=== PATIENT | male | born 1960 | race Caucasian/White ===

== ENCOUNTER 2025-03-22 19:16 | Emergency (ER) | payer MEDICARE, MEDICAID ==
[~2025-03-22] VITALS: Ht 162.6 cm; Wt 90.1 kg
[2025-03-22 19:22] VITALS: BP 133/78; PULSE 77; RESP 15; O2SAT 98
[2025-03-22] MEDS ORDERED: dexamethasone sod phosphate 10mg/ml inj IM STA (20:34)
--- NOTE | 2025-03-22 20:40 | Physician Documentation ---
History of Present Illness ~ Chief Complaint: Bite-insect Stated Complaint: LT HAND STUNG BY A BEE AND IS SWOLLEN Time Seen by MD: 19:37 Source: patient, RN/MD HPI Patient is seen today with complaints of redness and itching and swelling and pain of the dorsum of his left hand after he states he got stung by a meat bee or a yellow jacket yesterday. Patient states his hand is itchy but also painful in his concerned for an allergic reaction but also possible infection. Patient denies any fevers or chills and he has no other concern or complaint at this time and states symptoms just started yesterday. Medication Reconciliation Allergies: Coded Allergies: codeine (Verified Allergy, Unknown, headache, 03/22/25) Review of Systems Constitutional: Denies: chills, fever, weakness Eyes: Denies: pain, blurred vision ENT: Denies: ear pain, nose pain, throat pain, mouth pain Respiratory: Denies: cough, shortness of breath Cardiovascular: Denies: chest pain, palpitations Gastrointestinal: Denies: abdominal pain, nausea, vomiting Genitourinary: Denies: burning, dysuria Male Genitalia: Denies: penile discharge, testicular pain Neurological: Denies: headache, dizziness Musculoskeletal: Denies: pain, swelling Integumentary: Denies: rash, lesions Allergic/Immunologic: Denies: hives, itching Hematologic/Lymphatic: Denies: no symptoms reported Psychiatric: Denies: depression, anxiety Physical Exam Vital Signs: Temperature: 98.6, Heart Rate: 77, Respiratory Rate: 15, BP: 133/78, Pulse Oximetry: 98, Weight: 90.100 Physical Exam General: Awake and Alert, no acute distress. HEENT: Conjunctiva pink, Sclera clear, Mucus Membranes moist. Neck: Supple without masses and tenderness. Resp: Unlabored. Lungs clear to auscultation bilaterally. Heart: Regular Rate and rhythm, normal S1 and S2 without murmur, rub or gallop. Musculoskeletal: Patient on exam has significant swelling and redness of the dorsum of his left hand with significant tenderness to palpation and warmth. Very concerning for cellulitis of his hand. Extremities: No cyanosis,clubbing or edema. Skin: Warm and Dry. Progress Results/Orders Results/Orders Vital Signs 03/22/25 19:22 Temp 98.6 Pulse 77 Resp 15 B/P (MAP) 133/78 Pulse Ox 98 Medical Decision Making Findings Patient is seen today with complaints of redness and itching and swelling and pain of the dorsum of his left hand after he states he got stung by a meat bee or a yellow jacket yesterday. Patient states his hand is itchy but also painful in his concerned for an allergic reaction but also possible infection. Patient denies any fevers or chills and he has no other concern or complaint at this time and states symptoms just started yesterday. Patient was given dose of Decadron 10 mg IM as well as Bactrim DS by mouth in the ED tonight. Prescription of Medrol Dosepak taper and Bactrim DS one tab twice a day for 10 days sent to patient's pharmacy [facility] [address]. Patient will follow up with primary care in 2-5 days if no better as needed sooner. Or return to ED with any worsening, concerning or changing symptoms. Shared decision-making utilized today. Departure Disposition: HOME / SELF CARE / HOMELESS Impression: Primary Impression: Bee sting Qualified Codes: T63.441A - Toxic effect of venom of bees, accidental (unintentional), initial encounter Additional Impression: Cellulitis Qualified Codes: L03.114 - Cellulitis of left upper limb Condition: Improved Discharge Instructions: Cellulitis, Adult, Insect Bite, Adult, [id number] Additional Instructions: Patient was given dose of Decadron 10 mg IM as well as Bactrim DS by mouth in the ED tonight. Prescription of Medrol Dosepak taper and Bactrim DS one tab twice a day for 10 days sent to patient's pharmacy [facility] [address]. Patient will follow up with primary care in 2-5 days if no better as needed sooner. Or return to ED with any worsening, concerning or changing symptoms. Shared decision-making utilized today. Referrals: NO PRIMARY CARE PROVIDER (PCP) Prescriptions Sulfamethoxazole/Trimethoprim (Bactrim Ds Tablet) 800 Mg-160 Mg Tablet 1 TAB PO Q12H for 10 Days, #20 TAB Prov: JOAO VALLE PAC 03/22/25 Methylprednisolone (Medrol Dosepak) 4 Mg Tab.ds.pk 0 PO UD, #21 TAB 0 Refills take 6 Pills Day 1, 5 Pills Day 2, 4 Pills Day 3, 3 Pills Day 4, 2 Pills Day 5 and 1 pill Day 6 Prov: JOAO VALLE PAC 03/22/25 Signature Scribe Signature: No scribe Attestation: No scribJOAO Banda PAC Mar 22, 2025 20:40
[2025-03-22] MEDS: sulfamethoxazole/trimethoprim DS (800/160mg) tablet PO STA (20:49)
[2025-03-22] MEDS: dexamethasone sod phosphate 10mg/ml inj IM STA (20:51)
[2025-03-22] MEDS ORDERED: SULF1TAB49 PO (20:52)
[2025-03-22] MEDS ORDERED: METH4TAB81 PO (20:52)
[2025-03-22 20:55] VITALS: TEMP 98.6
== END 2025-03-22 20:58 | disposition home or self-care (01) ==
LOC: ER 19:16
DX: T63.441A Toxic effect of venom of bees, accidental (unintentional), initial encounter (principal); L03.114 Cellulitis of left upper limb; Z88.5 Allergy status to narcotic agent; W57.XXXA Bitten or stung by nonvenomous insect and other nonvenomous arthropods, initial encounter; Y93.89 Activity, other specified; Y92.89 Other specified places as the place of occurrence of the external cause; Y99.8 Other external cause status
CPT/HCPCS: 96372; 99283; J1100

== ENCOUNTER 2025-10-05 22:36 | Inpatient (IN) | payer MEDICARE, MEDICAID ==
[~2025-10-05] VITALS: Ht 170.2 cm; Wt 52.1 kg
[~2025-10-05 22:36] MED LIST: METH4TAB81 PO
--- NOTE | 2025-10-05 23:36 | RADIOLOGY REPORT ---
CHEST RADIOGRAPH INDICATION: CCC TECHNIQUE: Frontal and lateral view of the chest was obtained COMPARISON: None FINDINGS: Streaky opacity at the left lung base. Mild chronic fibrotic changes. Cardiac silhouette is within normal limits. Bones and soft tissues demonstrate no significant abnormality. IMPRESSION: Streaky opacity at the left lung base which could represent a developing bronchopneumonia.
[2025-10-06] VITALS (12 sets, daily range): BP systolic 147–165; BP diastolic 71–80; PULSE 61–90; RESP 14–22; TEMP 98.1–98.6; O2SAT 93–98
--- NOTE | 2025-10-06 00:17 | Physician Documentation ---
History of Present Illness ~ Chief Complaint: Cold, cough & congestion Stated Complaint: POSS PNUEMONIA Time Seen by MD: 01:41 HPI This is a 65-year-old male who presents with one-week of progressively worsening productive cough described as coughing up white stuff. Patient reports feeling hot all over when asked about fever. Date: Oct 06, 2025 Time: 02:30 Additional note by Red Ceja, DO: I took over the care of this patient from previous physician. I reviewed any previous notes available, obtain my own history, review of systems and physical examination was performed by myself. This is a 65-year-old homeless gentleman who presents for evaluation of seven days of progressive worsening productive cough with a white and yellow sputum. No obvious trigger provocation. Reports shortness a breath that is both exertional and positional. He reports fever, chills. Denies chest pain. Denies any nausea, vomiting, diarrhea. He reports myalgias. Denies dysuria hematuria. He smokes, he drinks, he uses meth. He does not have a formal diagnosis of congestive heart failure Medication Reconciliation Allergies: Coded Allergies: codeine (Verified Allergy, Unknown, headache, 10/05/25) Scheduled Methylprednisolone (Medrol Dosepak), 0 PO UD Review of Systems ROS As stated above in the HPI, otherwise all systems are reviewed and negative. Physical Exam Vital Signs: Temperature: 98.1, Source: Oral, Heart Rate: 89, Respiratory Rate: 20, BP: 212/99, Pulse Oximetry: 92, Weight: 52.100 Oxygen Flow Rate: 0 Physical Exam GENERAL: Awake, alert, oriented, GCS 15, no apparent distress, non-toxic appearing, answers questions, follows commands appropriately. Examined in triage. Obvious stigmata of homelessness. HEENT: Atraumatic, normocephalic, pupils equal, extraocular muscles intact, sclerae anicteric, mucus membranes moist, oropharynx is clear, no stridor. NECK: supple, full active range of motion, trachea midline, no thyromegaly, no lymphadenopathy, no JVD. CARDIOVASCULAR: regular rate/rhythm, no murmurs/gallops/rubs, Pulses are 2+ in all extremities and symmetric. Capillary refill less than 2 seconds. PULMONARY: Nonlabored, good air movement ,no respiratory distress, speaking in full sentences, clear to auscultation bilaterally, no wheezing, left-sided anterior ronchi, no rales, no accessory muscle use. GASTROINTESTINAL: Soft, non-tender, non-distended, normal active bowel sounds, no organomegaly, no pulsatile masses, no CVA tenderness. NEUROLOGIC: Lucid with normal mental status. Normal facial symmetry. Moves all extremities symmetrically and with purpose. No truncal ataxia. Speech is fluid without evidence of dysarthria or aphasia, no focal deficits appreciated. MUSCULOSKELETAL: There is full range of motion of all extremities. There is no joint pain or joint swelling or joint erythema. There is no muscle pain or tenderness or swelling. EXTREMITIES: warm, well-perfused, no cyanosis, no clubbing, bilateral lower extremity edema, no acute deformities. Skin: warm, dry, no rashes or lesions, no jaundice, no petechiae orpurpura. No ecchymosis. PSYCHIATRIC: Normal affect, normal insight, normal concentration. Focused exam: []: Progress Results/Orders Results/Orders Orders - RED CEJA DO Chest,Two Views (10/05/25 22:51) Culture Blood (10/05/25 22:51) Saline Lock (10/05/25 22:51) Oxygen (10/05/25 22:51) Hs Troponin I W Calculations (10/06/25 03:59) Page Hospitalist (10/06/25 02:29) Fill Out Med Reconciliation (10/06/25 02:29) Completed Orders - RED CEJA DO Chest,Two Views (10/05/25 22:51) Cbc/Diff (10/05/25 22:51) BMP (10/05/25 22:51) PBNP (10/05/25 22:51) Lacticsepsis (10/05/25 22:51) Electrocardiogram (10/06/25 01:59) ESR (10/06/25 01:59) Hs Troponin I W Calculations (10/06/25 01:59) Azithromycin/Ns 500mg/250ml (Zithromax/N (10/06/25 02:00) Ceftriaxone 2gm/Ns 100ml Ivpb (Rocephin (10/06/25 02:00) Furosemide Inj (Lasix Inj) (10/06/25 02:00) C-Reactive Protein (10/06/25 00:31) Vital Signs 10/05/25 22:44 Temp 98.1 Pulse 89 Resp 20 B/P (MAP) 212/99 Pulse Ox 92 O2 Flow Rate 0 Laboratory Tests Test 10/06/25 00:31 White Blood Count 15.8 H Red Blood Count 4.96 Hemoglobin 13.3 L Hematocrit 40.6 L Mean Corpuscular Volume 81.9 Mean Corpuscular Hemoglobin 26.8 L Mean Corpuscular Hemoglobin Concent 32.7 L Red Cell Distribution Width 16.4 H Platelet Count 336 Mean Platelet Volume 8.0 Neutrophils (%) (Auto) 86.8 H Lymphocytes (%) (Auto) 3.2 L Monocytes (%) (Auto) 9.7 Eosinophils (%) (Auto) 0.1 Basophils (%) (Auto) 0.2 Neutrophils # (Auto) 13.8 H Lymphocytes # (Auto) 0.5 L Monocytes # (Auto) 1.5 H Eosinophils # (Auto) 0.0 Basophils # (Auto) 0.0 CBC Comment Erythrocyte Sedimentation Rate 34 H Sodium Level 140 Potassium Level 4.1 Chloride Level 100 Carbon Dioxide Level 27.0 Anion Gap 13 Blood Urea Nitrogen 75 H Creatinine 3.05 H Estimated GFR/1.73 m2 21 BUN/Creatinine Ratio 24.6 H Glucose Level 127 H Lactic Acid Level 1.1 Calcium Level 9.2 Troponin I High Sensitivity 31 C-Reactive Protein 7.49 H Pro-B-Type Natriuretic Peptide 8386 H Albumin 3.6 Chemistry Comments Microbiology Date/Time Source Procedure Growth Status 10/06/25 00:31 Blood Arm Right Blood Culture - Preliminary NEGATIVE (LESS THAN 24 HOURS) Resulted EKG/XRAY/CT/US/VASC/MRI EKG : Additional Comment EKG was obtained and interpreted by myself showing ectopic atrial pacing, normal SC interval, narrow QRS, borderline QTC of 496, normal axis, no STEMI. T-wave inversion in inferior leads as well as V5 and V6. LVH noted. Medical Decision Making Additional information obtaine: old records Findings MSE performed in triage and patient returned to ED lobby by nursing staff to await available ED room Date: Oct 06, 2025 Time: 02:32 Facility Status: ED Holds, RME process The plan was discussed with the patient, who demonstrates clear understanding of the plan and is in agreement with the plan unless otherwise noted in the chart. All questions have been answered, all concerns were addressed unless otherwise documented. I was available throughout their ED stay for frequent reassessment and questions. Differential Diagnoses (considered and possible or likely): [COVID, influenza, RSV, upper respiratory infection with the top of the viruses, bacterial p neumonia, COPD, CHF, ACS, less likely pulmonary embolism] ??Differential Diagnoses (considered and unlikely, not requiring evaluation currently): [See above. Unlikely to represent mitochondrial poisoning] MDM Data Please see [facility] for the following: Independent Historians and external Records Review. Historian: [Patient] Independent Historians: ?[Record review] Medication Management: [Reviewed medication list] Social History and determinants: [Reviewed] Please see the body of the note for the following: Any independent interpretations of ECG, imaging studies. All vitals signs/haemodynamics, ordered tests were independently reviewed and interpreted by myself. Nursing triage complaint and vitals reviewed, additional nursing notes were reviewed as available and I agree unless otherwise noted or documented in contradiction in the chart Vital Signs: Independently reviewed Labs: Independently interpreted Imaging: Independently interpreted Old Medical Records: Independently reviewed, see [facility] for relevant summary and information Pulse Oximetry: [95%] interpreted as [normal on room air] by me [Health Technician: [Regular Rate, Regular rhythm, no ectopy, NSR] reviewed and interpreted by me] Additionally notably showing: [Hemodynamics reviewed. The patient is not febrile, not tachycardic, markedly hypotensive, no evidence of hypoxia or respiratory distress. CBC shows leukocytosis, 87% neutrophilic predominance. Metabolic panel notable for JOLENE versus CKD, no prior data is available. Intravascular depletion noted. BNP is markedly elevated concerning for new diagnosis of CHF. Chest x-ray is consistent with a left lower lobe pneumonia. Troponin is negative] Tests considered but not ordered include: [Echo can be done on an inpatient basis] Social Determinants of Health Impact: Patient was evaluated in [facility] [place] to healthcare due to below par ratio of patient to medical providers. [] Comorbid Conditions Impacting Present Evaluation and Care/Treatment: [Homelessness and polysubstance abuse] Management Discussions with other Healthcare Providers: [Hospitalist regarding admission] Treatment and Disposition Medication Management (Given or considered): [Lasix, antibiotics]. See EMR for details Consideration for Hospitalization/Escalation/Deescalation of Care: Admission for observation is necessary for further management of his community-acquired pneumonia, borderline hypoxia, and investigation of a new diagnosis of congestive heart failure ?ED Course:?[No clinical deterioration] ?Shared decision making:?[] Code status:?FULL Please see the full Electronic Medical Record for full details of nursing documentation, medications list, other records of complete past medical history and conditions, vital signs, laboratory studies, and any radiologic study interpretations by radiologists. Portions of this note were completed using [employer] dictation software and as a result there may exist minor errors in spelling. I have reviewed elements of past family and social history and agree as included in note. Differential Dx:Considerations: Include: Other (See body of the main note for differential diagnosis) Departure Disposition: 09 ADMITTED INPATIENT Admitted to Inpatient Unit: to hospitalist Impression: Primary Impression: Community acquired pneumonia Additional Impressions: New onset of congestive heart failure Methamphetamine abuse Tobacco abuse Homelessness Condition: Stable Referrals: NO PRIMARY CARE PROVIDER (PCP) Signature Scribe Signature: No scribe Attestation: The note accurately reflects work and decisions made by me.Red Ceja DO 10/06/25 02:35 ERIC NIELSON Oct 06, 2025 00:17 RED CEJA DO Oct 06, 2025 02:35
[2025-10-06 00:45] LABS: MEAN PLATELET VOLUME 8.0 FL (7.4-10.4); RED CELL DISTRIBUTION WIDTH 16.4 % (11.5-14.5)
[2025-10-06 01:09] LABS: CREATININE 3.05 MG/DL (0.60-1.10); PRO BRAIN NATRIURETIC PEPTIDE 8386 PG/ML (0-125); TOTAL CARBON DIOXIDE 27.0 MMOL/L (24-32); eCRCL 17 ML/MIN; eGFR 21 ML/MIN
--- NOTE | 2025-10-06 02:12 | ELECTROCARDIOGRAPH REPORT ---
[facility] Test Date: 2025-10-06 Test Time: 02:10:34 Pat Name: DESI IZQUIERDO Department: [facility]-ER Patient ID: [facility]-[id number] Room: [place] [address] Gender: M Order Clerk: : 1960 Requested By: ANGELICA CEJA Order Number: [id number] Reading MD: Dr. Eulalio Mae Measurements Intervals [place] Rate: 86 P: 0 ME: 96 QRS: 85 QRSD: 89 T: -73 QT: 414 QTc: 496 Interpretive Statements Atrial-paced complexes Ventricular premature complex Probable left atrial enlargement Borderline right axis deviation LVH with secondary repolarization abnormality Borderline prolonged QT interval Electronically Signed On 10-10-2025 0:20:[address] Eulalio Mae Please click the below link to view image of tracing.
[2025-10-06] MEDS ORDERED: ondansetron/PF 4mg/2ml inj IV PRN (03:05)
[2025-10-06] MEDS ORDERED: potassium Cl 20 mEq SR tablet PO PRN ×2 (03:05)
[2025-10-06] MEDS ORDERED: magnesium sulf-water 4G/100mL 100 ML IV PRN (03:05)
[2025-10-06] MEDS ORDERED: magnesium sulf-water 2g/50mL 50 ML IV PRN (03:05)
[2025-10-06] MEDS ORDERED: magnesium Cl slow-release 64mg tablet PO PRN (03:05)
[2025-10-06] MEDS ORDERED: potassium Cl 40MEQ/1/2NS 520ml 520 ML IV PRN (03:05)
[2025-10-06] MEDS ORDERED: magnesium hydroxide 30ml (MOM) UD suspension PO PRN (03:05)
[2025-10-06] MEDS ORDERED: albuterol 2.5 MG/3 ML nebule NEB PRN (03:45)
--- NOTE | 2025-10-06 04:41 | HISTORY AND PHYSICAL-Residence ---
History & Physical Providers to CC Resident Creating Document: JUAN J SANTAMARIA, GINA ~ History of Present Illness Reason for Admit\Complaint: Acute hypoxemic respiratory failure, acute CHF, left lower pneumonia, History of Present Illness 65-year-old male(very poor historian) came to the ER with chief complaints of cough and fever. He endorses cough for the past 1 week, progressively worsening, associated with white and yellow-colored sputum without any obvious trigger. He reported fever, high-grade, intermittent not associated with chills and rigors for the past 5 days. He is complaining of the shortness of breath for the past 2 weeks, class 4 NYHA associated with orthopnea and PND. He reported chest pain for the past 1 week more on the left side, squeezing type, rated 10/10 without any aggravating or relieving factors and without any radiation to neck and left upper limb. He is complaining of the wheezing for the past 2-3 weeks. He reports myalgias and generalized weakness. he denied swelling of the legs, palpitations, nausea, vomiting, diarrhea, dysuria, hematuria. He endorses that he is smoking cigarettes and meth and he is drinking alcohol. He does not have any diagnosis of CHF Allergies: Coded Allergies: codeine (Verified Allergy, Unknown, headache, 10/05/25) Home Medications Home Medications Active Medrol Dosepak (Methylprednisolone) 4 Mg Tab.ds.pk 0 PO UD take 6 Pills Day 1, 5 Pills Day 2, 4 Pills Day 3, 3 Pills Day 4, 2 Pills Day 5 and 1 pill Day 6 Past Medical History Past Medical History Unknown Past Surgical History Surgical History Comment Unknown Family History Family History: Patient reports no known family medical history. Past Social History Social History Comment Could not able to elicit complete social history because he is not answering the questions completely and falling asleep. Smoking cigarettes a pack per day for more than 10 years Drinks alcohol but he does not know the accurate quantity Methamphetamine use Smoking: Cigarettes, Greater than 1 pack/day Alcohol Use: Heavy Drug Use: Methamphetamine Lives with: Alone Lives In: Homeless ROS Constitutional: Reports: fever, malaise, weakness Eyes: Reports: no symptoms reported ENT: Reports: no symptoms reported Respiratory: Reports: see HPI, cough, orthopnea, shortness of breath, SOB with exertion, SOB at rest, wheezing Cardiovascular: Reports: chest pain, palpitations Gastrointestinal: Reports: poor appetite, poor fluid intake Genitourinary: Reports: decreased urine output Male Genitalia: Reports: no symptoms reported Neurological: Reports: no symptoms reported Musculoskeletal: Reports: no symptoms reported Integumentary: Reports: lesions Allergic/Immunologic: Reports: no symptoms reported Hematologic/Lymphatic: Reports: no symptoms reported Endocrine: Reports: no symptoms reported Psychiatric: Reports: no symptoms reported Exam Vitals: Vital Signs Date Time Temp Pulse Resp B/P (MAP) Pulse Ox O2 Delivery O2 Flow Rate FiO2 10/06/25 03:57 93 2.0 10/05/25 22:44 98.1 89 20 212/99 General: General:: Awake, alert, not oriented to time, place. In mild respiratory distress.answers questions, not following commands appropriately and feels drowsy. Obtunded and homelessness. Malnourished moderately. HEENT: Atraumatic, normocephalic, pupils equal, extraocular muscles intact, sclerae anicteric, mucus membranes moist, oropharynx is clear, no stridor. Neck: supple, full active range of motion, trachea midline, no thyromegaly, no lymphadenopathy, no JVD. Cardiovascular system: regular rate/rhythm,/gallops/rubs, Pulses are 2+ in all extremities and symmetric. Able to heard ejection systolic murmur but it is too noisy with crepitations and wheeze. Capillary refill less than 2 seconds. Chest and respiratory system: Bilateral normal vesicular breath sounds are heard. Bilateral crepitations in infrascapular and interscapular area. More on the left lower zone. Wheezing over bilateral infrascapular area. Gastrointestinal: Soft, non-tender, non-distended, normal active bowel sounds, no organomegaly, no pulsatile masses, no CVA tenderness. Neurological system: Lucid with normal mental status. Normal facial symmetry. Moves all extremities symmetrically and with purpose. No truncal ataxia. Speech is fluid without evidence of dysarthria or aphasia, no focal deficits appreciated. Musculoskeletal system: There is full range of motion of all extremities. There is no joint pain or joint swelling or joint erythema. There is no muscle pain or tenderness or swelling. Extremities: warm, well-perfused, no cyanosis, clubbing is present. No bilateral lower extremity edema, no acute deformities. Skin: warm, dry, no rashes or lesions, no jaundice, no petechiae orpurpura. Bilateral healed crusted lesions on leg Psychiatric: Affect and mood is normal.. Diagnostic Data Last Recorded Lab Results: 10/06/25 0031 10/06/25 0031 Advance Care Planning Advanced Care plannin - 30 Minutes Additional Plan Acute hypoxemic respiratory failure likely secondary to below 1)Possible acute CHF, new onset 2)Possible acute exacerbation of undetected COPD 3)Left lower zone pneumonia, covering Gram-positive and Gram-negative and anaerobes WBC counts are elevated to 15.8 with a neutrophilic preponderance. Procalcitonin is 0.53 and lactic acid is 1.1 and C-reactive protein is 7.49 and ESR is 34 Electrolytes are okay. Troponins are negative ProBNP is 8 386 Chest x-ray showed left lower zone pneumonia along with COPD changes Outpatient evaluation with PFT Ordered echocardiogram We are diuresing with Lasix 40 mg IV b.i.d. but we will follow up with input and output chart if there is any need we may probably give fluid. Received ceftriaxone Zithromax and we continued the patient on ceftriaxone Zithromax Started on albuterol q.4h p.r.n. , DuoNeb q.4h scheduled, methylprednisolone 125 mg followed by 40 mg IV q.6 H Incentive spirometer with flutter valve q.1h while awake Maintain magnesium more than 2 and potassium more than 4 Ordered A1c, lipid panel Ordered ST BSS and nursing swallow screen meanwhile we put the patient on aspiration precautions. JOLENE likely secondary to prerenal, vasomotor nephropathy Serum creatinine of 3.05 with BUN of 75 with BUN to creatinine ratio of 24.6 Ordered urinary lytes with serum ethanol follow up with the results Consult strategic debriefing officer in the a.m. Polysubstance use Methamphetamine use disorder Alcohol use disorder Nicotine use disorder Ordered U tox and ethanol level and urinalysis follow up with the results. Ordered social and substance use consult , Started on mild detox protocol Code status: Full code Diet: Heart healthy diet after swallow test DVT prophylaxis: SCDs and heparin Prognosis: Guarded Juan J Santamaria IM resident, PGY 2 We saw and discussed the case with the resident team Agree with assessment and plan as documented Date of Service: Oct 06, 2025 Billing Provider: MIKE SAUCEDA MD, VENKATESH, GINA Oct 06, 2025 04:41 MIKE SAUCEDA MD Oct 06, 2025 10:53
[2025-10-06] MEDS ORDERED: dextrose 50%-water 50ml dispensing syringe IV PRN (04:55)
[2025-10-06] MEDS: furosemide 10 MG/1 ML 10ml inj IV ONE (05:23)
[2025-10-06] MEDS: azithromycin/NS 500mg/250ml 250 ML IV ONE (05:23)
[2025-10-06 06:16] LABS: LEUKOCYTE ESTERASE ,URINE NEGATIVE (Neg); NITRITES, URINE NEGATIVE (Neg); OCCULT BLOOD,URINE SMALL (Neg)
[2025-10-06 06:20] LABS: UA COLLECTION TYPE CLN CATCH MIDSTREAM
[2025-10-06 06:22] LABS: MUCUS STRANDS FEW /LPF (Neg); SQUAMOUS EPITHELIAL CELL,UR FEW /LPF (FEW)
[2025-10-06 06:25] LABS: OSMOLALITY UA 564 MOSM/K (50-1400)
[2025-10-06] MEDS: CefTRIAXone 2gm/D5W 50ml BAG 50 ML IV ONE (06:47)
[2025-10-06 06:53] LABS: CREATININE,URINE RANDOM 139.0 MG/DL; TOTAL PROTEIN,URINE RANDOM 109.5 MG/DL; URINE AMPHETAMINE SCREEN POSITIVE (Neg); URINE BARBITUATE SCREEN NEGATIVE (Neg); URINE BENZODIAZEPINES SCREEN NEGATIVE (Neg); URINE CANNABINOID SCREEN NEGATIVE (Neg); URINE COCAINE SCREEN NEGATIVE (Neg); URINE METHADONE SCREEN NEGATIVE (Neg); URINE OPIATE SCREEN NEGATIVE (Neg); URINE PHENCYCLIDINE SCREEN NEGATIVE (Neg)
[2025-10-06] MEDS: ipratropium/albuterol 3ml nebule NEB SCH (07:24)
[2025-10-06] MEDS: K and/or MAG REPLACEMENT MC SCH (08:00)
[2025-10-06] MEDS ORDERED: azithromycin/NS 500mg/250ml 250 ML IV SCH (08:00)
[2025-10-06] MEDS: docusate sod 100mg capsule PO SCH (08:00)
[2025-10-06] MEDS: methylPREDNISolone sod succ/PF 40mg inj. IV SCH (08:52)
[2025-10-06] MEDS: thiamine 100mg/ml 2ml inj. IV SCH (08:52)
[2025-10-06] MEDS: furosemide 10 MG/1 ML 10ml inj IV SCH (08:53)
[2025-10-06] MEDS: heparin, porcine 5000 units/ml vial SQ SCH (08:54)
[2025-10-06] MEDS: folic acid 1mg/0.2ml inj IV SCH (09:07)
[2025-10-06 11:30] LABS: APTT 29 SECONDS (22-32); INR 1.1 INR
[2025-10-06 13:56] LABS: INFLUENZA TYPE A ANTIGEN RAPID NEGATIVE (Negative); INFLUENZA TYPE B ANTIGEN RAPID NEGATIVE (Negative)
[2025-10-06] MEDS: vancomycin/NS 1 GM ADD-VANTAGE 250 ML X 1 DOSE IV ONE (19:28)
--- NOTE | 2025-10-06 19:34 | RADIOLOGY REPORT ---
INDICATION: JOLENE TECHNIQUE: Multiple real-time sonographic images of the kidneys and bladder were obtained. COMPARISON: None FINDINGS: RIGHT kidney measures 8.3 cm in length. No stones or hydronephrosis. LEFT kidney measures 9.3 cm in length. No stones or hydronephrosis. Bladder is decompressed. IMPRESSION: No hydronephrosis.
[2025-10-07] VITALS (32 sets, daily range): BP systolic 112–172; BP diastolic 60–105; PULSE 55–177; RESP 15–31; TEMP 97.2–98.7; O2SAT 91–98
[2025-10-07] MEDS: hydrALAZINE 20mg/ml inj. IV PRN (02:21)
[2025-10-07 06:45] LABS: MEAN PLATELET VOLUME 8.7 FL (7.4-10.4); RED CELL DISTRIBUTION WIDTH 16.3 % (11.5-14.5)
[2025-10-07 06:51] LABS: CREATININE 2.89 MG/DL (0.60-1.10); PHOSPHORUS 4.4 MG/DL (2.3-4.5); TOTAL CARBON DIOXIDE 27.8 MMOL/L (24-32); eCRCL 18 ML/MIN; eGFR 22 ML/MIN
[2025-10-07] MEDS: methylPREDNISolone sod succ/PF 40mg inj. IV SCH (07:59)
[2025-10-07] MEDS: CefTRIAXone/D5W-Rocephin 1gm 50 ML IV SCH (08:01)
--- NOTE | 2025-10-07 08:24 | ELECTROCARDIOGRAPH REPORT ---
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 PRINCE Parker Measurements Intervals [place] Rate: 173 P: 0 OR: 0 QRS: 0 QRSD: 164 T: 66 QT: 313 QTc: 531 Interpretive Statements Atrial fibrillation. With rapid ventricular response. Nonspecific ST-T changes Electronically Signed On 10-07-2025 11:02:[address] PRINCE Parker Please click the below link to view image of tracing.
[2025-10-07] MEDS: metoprolol tartrate 1mg/ml inj IV ONE ×3 (08:33→09:46)
[2025-10-07] MEDS: VANCOMYCIN LEVEL IV ONE (08:50)
[2025-10-07] MEDS: normal saline 500ml IV soln 500 ML IV ONE (08:50)
[2025-10-07] MEDS: azithromycin/NS 500mg/250ml 250 ML IV SCH (09:01)
--- NOTE | 2025-10-07 11:10 | CARDIOLOGY REPORT ---
APPROVED REPORT EXAM: Comprehensive 2D, Doppler, and color-flow Echocardiogram. 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 180.6 cm/s AoV VTI 27.9 cm AO Peak GR. 13.0 mmHg AO Mean GR. 8 mmHg LVOT VTI 22.64 cm LVOT Peak Ashok. 114.7 cm/s JOSEPH(VTI)/BSA 2.74 cm2/m2 JOSEPH (VTI) 2.74 cm2 AV DI 0.81 % Mitral Valve MV E Velocity 57.4 cm/s MV Peak Gr. 2 mmHg MV DECEL TIME 288 ms MV A Velocity 88.0 cm/s MV PHT 68 ms E/A Ratio 0.7 MVA (PHT) 3.24 cm2 MV VMax 66.1 cm/s Tricuspid Valve TR P. Velocity 303 cm/s RAP ESTIMATE 10 mmHg TR Peak Gr. 37 mmHg RVSP 47 mmHg LEFT VENTRICLE Normal LV size with hyperdynamic function. Peak LV gradient of 28 mmHg at rest. Patient unable to perform Valsalva maneuver. Moderate concentric hypertrophy. Overall LVEF is 70-75%. RIGHT VENTRICLE RV is normal size and function. Elevated right heart pressures as noted above. ATRIA The left atrium size is normal. AORTIC VALVE Trileaflet AV appears sclerotic without stenosis. No insufficiency by color and spectral flow Doppler. MITRAL VALVE Mild MV annular calcification without stenosis. Trace regurgitation by color and spectral flow Doppler. TRICUSPID VALVE TV appears structurally normal with trace regurgitation by color and spectral flow Doppler. PULMONIC VALVE Pulmonic valve is not well visualized. GREAT VESSELS The aortic root is normal in size. PERICARDIUM Normal pericardium. No effusion. Other Information Study Quality: Adequate Conclusion Overall LVEF is 70-75%. Normal LV size with hyperdynamic function. Peak LV gradient of 28 mmHg at rest. Patient unable to perform Valsalva maneuver. Moderate concentric hypertrophy. RV is normal size and function. Elevated right heart pressures as noted above. Mild MV annular calcification without stenosis. Trace regurgitation by color and spectral flow Doppler. TV appears structurally normal with trace regurgitation by color and spectral flow Doppler. Estimated PA systolic pressure of 47 mm of mercury Pulmonic valve is not well visualized. Normal pericardium. No effusion.
[2025-10-07] MEDS: amiodarone 150mg/dext, iso-os 100 ML IV ONE (11:40)
[2025-10-07] MEDS: amiodarone/D5 360MG/200ML BAG 200 ML IV SCH (11:54)
[2025-10-07] MEDS: vancomycin/NS 1 GM ADD-VANTAGE 250 ML IV ONE (12:03)
[2025-10-07] MEDS ORDERED: NO HOME MEDS (14:34)
--- NOTE | 2025-10-07 14:58 | CONSULTATION REPORT ---
History of Present Illness Providers to CC CC: WILL GORDON MD ~ Reason for Admit\Admit Dx: Cardiology consultation Refering MD: None History of Present Illness Patient presented with cough. He apparently went into atrial fibrillation today with rapid ventricular response. Treated with IV metoprolol and amiodarone. He is going in and out of atrial fibrillation with rapid ventricular response rate of about 170-200. Was positive for methamphetamine and fentanyl. Currently, he is requesting Suboxone. He is unable to provide much history. Allergies: Coded Allergies: codeine (Verified Allergy, Unknown, headache, 10/05/25) Home Medications Home Medications Active Reported No Home Medications (Home Med List) Each Past Medical History Medical History Comment No known history Past Family History Family History: Patient reports no known family medical history. Physical Exam Last Vital Signs Recorded: RN Vital Signs have been reviewed: Yes, Temperature: 97.2, Source: Oral, Heart Rate: 145, Respiratory Rate: 25, BP: 144/76, Pulse Oximetry: 98, Weight: 52.100 Physical Exam General: Awake, asleep but awakens to light shaking. On room air. Respirations even and unlabored. No apparent distress. Respiratory: Lungs are clear to auscultation bilaterally. No respiratory distress. Chest: Normal shape and size. No accessory muscle use. Cardiovascular: Regular rate and rhythm. S1-S2. No murmur, gallop, rub. Extremities: No lower extremity edema, cyanosis or clubbing. Neurologic: Alert and oriented x4. Nonfocal Psychiatric: Normal mood and affect. Skin: Normal color. Warm and dry. Review of Systems ROS Review of systems negative except documented in HPI. Results Echocardiogram Echocardiogram Conclusion Overall LVEF is 70-75%. Normal LV size with hyperdynamic function. Peak LV gradient of 28 mmHg at rest. Patient unable to perform Valsalva maneuver. Moderate concentric hypertrophy. RV is normal size and function. Elevated right heart pressures as noted above. Mild MV annular calcification without stenosis. Trace regurgitation by color and spectral flow Doppler. TV appears structurally normal with trace regurgitation by color and spectral flow Doppler. Estimated PA systolic pressure of 47 mm of mercury Pulmonic valve is not well visualized. Normal pericardium. No effusion. Dictated by:WILLIAM PHILLIP MD Dictation date and time:10/07/25 1109 Diagram Lab Result Diagram: 10/07/25 0544 10/07/25 0544 Assessment/Plan Additional Plan Patient presented with cough, congestion and shortness for breath. Went into atrial fibrillation and cardiology consultation was requested. The following is his problem list: Atrial fibrillation with rapid ventricular response, paroxysmal TSH within normal range --continue amiodarone --start diltiazem for rate control No known medical history. Suspect chads Vasc is two for age and possible CHF. Consider oral anticoagulation on discharge Currently he is receiving heparin subcutaneous Congestive heart failure NT proBNP 8386 Echocardiogram demonstrates preserved LVEF --Lasix as needed to keep euvolemic --consider addition of SGLT2 inhibitor Pneumonia --antibiotic management per hospitalist Acute kidney injury --recommend monitoring Elevated blood pressure without diagnosis of hypertension --start diltiazem as above and monitor Polysubstance abuse --recommend substance abuse counselor consult Case discussed with Dr. Lilia Gordon who is in agreement with the above. Supervising MD Supervising Physician: JENNIFER Martin NP Oct 07, 2025 14:58
[2025-10-07] MEDS: normal saline 1000ml 1,000 ML IV SCH (15:16)
--- NOTE | 2025-10-07 15:38 | PROGRESS NOTE- Residence ---
Progress Note - Resident Providers to CC Resident Creating Document: OC SARMIENTO RES ~ Antibiotic Timeout Antibiotic Ordered?: Yes Subjective Patient seen and examined at the bedside, denied any chest pain shortness of breaths or any new complaint, lying in the bed eating the breakfast, mildly agitated. At the same time telemetry reported tachycardia, EKG showed AFib with RVR patient received 5 mg IV metoprolol, rate was not controlled amiodarone loading dose and drip started Objective Vital Signs Date Time Temp Pulse Resp B/P (MAP) Pulse Ox O2 Delivery O2 Flow Rate FiO2 10/07/25 11:00 97.2 145 25 144/76 (98) 98 Room Air 10/07/25 08:00 0.0 21 Result Diagram: 10/07/25 0544 10/07/25 0544 General: Awake and Alert, no acute distress. HEENT: Conjunctiva pale, Sclera clear, Mucus Membranes dry Neck: Supple without masses and tenderness. Resp: Basilar crackle Heart: irregular rate and rhythm, normal S1 and S2 Abdomen: Soft and non tender Extremities: No cyanosis,clubbing or edema. Skin: Warm and Dry. Neurological: Speech is clear, alert, and oriented x 4, no gross neurological deficits Coagulation Studies Laboratory Tests Test 10/06/25 11:08 Prothrombin Time 10.9 SECONDS (9.0-12.0) INR International Normalized Ratio 1.1 INR Activated Partial Thromboplast Time 29 SECONDS (22-32) Coagulation Comments Plan Plan 65 years old male very poor historian with history of polysubstance abuse, alcohol use disorder presented with cough fever Acute hypoxemic respiratory failure likely secondary to below Possible acute CHF, new onset Possible acute exacerbation of undetected COPD Left lower zone pneumonia, covering Gram-positive and Gram-negative and anaerobes On admission: WBC counts are elevated to 15.8 with a neutrophilic preponderance. Procalcitonin is 0.53 and lactic acid is 1.1 and C-reactive protein is 7.49 and ESR is 34 Electrolytes are okay.Troponins are negative, ProBNP is 8386 Chest x-ray showed left lower zone pneumonia along with COPD changes Outpatient evaluation with PFT Ordered echocardiogram We are diuresing with Lasix 40 mg IV b.i.d. but we will follow up with input and output chart if there is any need we may probably give fluid. Received ceftriaxone Zithromax and we continued the patient on ceftriaxone Zithromax Started on albuterol q.4h p.r.n. , DuoNeb q.4h scheduled, methylprednisolone 125 mg followed by 40 mg IV q.6 H Incentive spirometer with flutter valve q.1h while awake Ordered A1c 5.3, Ordered ST BSS and nursing swallow screen meanwhile we put the patient on aspiration precautions. 10/07/23, we will continue ceftriaxone and azithromycin, vancomycin also added day two, Lasix stopped today, continue albuterol, DuoNeb, Decreased methylprednisolone to b.i.d. Incentive spirometer with flutter valve Newly diagnosed AFib with RVR Today in the morning telemetry reported heart rate around 150 AFib, EKG no ST elevation Patient is asymptomatic, received 5 mg metoprolol x3 heart rate was not controlled, amiodarone loading dose and drip started Cardiology consulted Alexx Vasc score three, Eliquis 2.5 b.i.d. started Maintain magnesium more than two and potassium more than four JOLENE likely secondary to prerenal, vasomotor nephropathy On admission: Serum creatinine of 3.05 with BUN of 75 with BUN to creatinine ratio of 24.6 Renal Ultrasound, normal Urine lytes suggestive of prerenal Unfortunately I&Os was not collected correctly, patient today is very dry we stopped the Lasix and started on IV fluid we will re-evaluate patient tomorrow for volume status Polysubstance use Methamphetamine use disorder Alcohol use disorder Nicotine use disorder Ordered social and substance use consult , Started on mild detox protocol Protocol changed to severe protocol Code status: Full code Diet: Heart healthy diet DVT prophylaxis: Eliquis Prognosis: Guarded Date of Service: Oct 07, 2025 Billing Provider: PENNY LUNDBERG MD,OC, RES Oct 07, 2025 15:38
[2025-10-07] MEDS: diltiazem-NS 100mg/100ml 100 ML IV SCH (16:05)
[2025-10-07 16:34] LABS: CHOL/HDL RATIO 2.9 (0.00-4.99); LDL CHOLESTEROL 95 MG/DL (50-100)
[2025-10-07] MEDS ORDERED: morphine 4 MG/ML inj SYRINge IV PRN (21:20)
[2025-10-07] MEDS: morphine 4 MG/ML inj SYRINge IV PRN (21:58)
[2025-10-08] VITALS (21 sets, daily range): BP systolic 138–173; BP diastolic 57–86; PULSE 60–95; RESP 14–31; TEMP 96.8–98.6; O2SAT 91–98
[2025-10-08] MEDS: VANCOMYCIN LEVEL IV SCH (03:00)
[2025-10-08 03:41] LABS: MEAN PLATELET VOLUME 8.5 FL (7.4-10.4); RED CELL DISTRIBUTION WIDTH 16.3 % (11.5-14.5)
[2025-10-08 03:52] LABS: CREATININE 2.89 MG/DL (0.60-1.10); PHOSPHORUS 3.9 MG/DL (2.3-4.5); TOTAL CARBON DIOXIDE 27.2 MMOL/L (24-32); eCRCL 18 ML/MIN; eGFR 22 ML/MIN
--- NOTE | 2025-10-08 05:51 | ELECTROCARDIOGRAPH REPORT ---
[facility] Test Date: 2025-10-07 Test Time: 19:08:27 Pat Name: DESI IZQUIERDO Department: [address] Room: [place] [address] A Gender: M [employer]: : 1960 Requested By: PENNY LUNDBERG Order Number: [id number] Reading MD: Dr. PRINCE Parker Measurements Intervals [place] Rate: 68 P: 74 UT: 105 QRS: 55 QRSD: 94 T: 269 QT: 507 QTc: 540 Interpretive Statements Sinus rhythm Atrial premature complex Short UT interval LVH with secondary repolarization abnormality Prolonged QT interval Electronically Signed On 10-08-2025 9:27:[address] PRINCE Parker Please click the below link to view image of tracing.
--- NOTE | 2025-10-08 09:37 | PROGRESS NOTE ---
Progress Note Cardiology Providers to CC ~ Subjective Subjective Patient remains resting in bed. He states he feels like his heart is racing currently. He is in sinus in the 70s. When asked if he feels like he is withdrawing he states that he is. Objective Result Diagram: 10/08/25 0320 10/08/25 032 Objective General: Awake, asleep but awakens to sling his name. Respiratory: Lungs are clear to auscultation bilaterally. No respiratory distress. Chest: Normal shape and size. No accessory muscle use. Cardiovascular: Regular rate and rhythm. S1-S2. No murmur, gallop, rub. Extremities: No lower extremity edema, cyanosis or clubbing. Neurologic: Alert and oriented x4. Nonfocal Psychiatric: Normal mood and affect. Skin: Normal color. Warm and dry. Coagulation Studies Laboratory Tests Test 10/06/25 11:08 Prothrombin Time 10.9 SECONDS (9.0-12.0) INR International Normalized Ratio 1.1 INR Activated Partial Thromboplast Time 29 SECONDS (22-32) Coagulation Comments Problem\Assessment\Plan Additional Plan Patient presented with cough, congestion and shortness for breath. Went into atrial fibrillation and cardiology consultation was requested. The following is his problem list: Atrial fibrillation with rapid ventricular response, paroxysmal TSH within normal range --continue amiodarone. transition to PO --transition cardizem to PO No known medical history. Suspect chads Vasc is two for age and possible CHF. On Eliquis 2.5 mg BID (creatinine greater than 1.5 and weight less than 60 kg) Congestive heart failure NT proBNP 8386 Echocardiogram demonstrates preserved LVEF. LVH --consider addition of SGLT2 inhibitor Left ventricular hypertrophy IVSd 1.5 cm. Pwd 1.5 cm. LVDd 2.6 cm ? HCM vs hypertensive heart dz. --stay hydrated. --will need outpatient f/up. He will need to get a PCP and referal to cards. Pneumonia --antibiotic management per hospitalist Acute kidney injury --recommend monitoring Elevated blood pressure without diagnosis of hypertension --start diltiazem as above and monitor Polysubstance abuse --recommend substance abuse counselor consult Case discussed with Dr. Lilia Gordon who is in agreement with the above. Supervising Physician: JENNIFER Martin NP Oct 08, 2025 09:37
[2025-10-08] MEDS: diltiazem CD 120mg capsule (once-daily) PO SCH (09:39)
--- NOTE | 2025-10-08 13:44 | RADIOLOGY REPORT ---
NUCLEAR MEDICINE VENTILATION/PERFUSION LUNG SCAN. INDICATION: sob, A-FIB COMPARISON: None TECHNIQUE: Following intravenous demonstration of 5.5 millicuries of technetium 99m MAA, and inhalation of 40.6 mCi of Tc 99m DTPA scintigrams were obtained in multiple projections of the lungs. FINDINGS: There is normal uptake of radionuclide on both the ventilation and perfusion portions of the examination. No mismatched perfusion defects are demonstrated. Uptake is normally homogeneous. IMPRESSION: Low probability for PE.
--- NOTE | 2025-10-08 18:38 | PROGRESS NOTE- Residence ---
Progress Note - Resident Providers to CC Resident Creating Document: BALDEMAR FIELD RES ~ Fernandez-Non Protocol Fernandez Indications Met/Not Met: F/C Indications Not Met Antibiotic Timeout Antibiotic Ordered?: Yes Subjective Patient seen and examined at the bedside, denied any chest pain shortness of breaths or any new complaint, resting comfortably on the bed. No acute symptoms overnight. Objective Vital Signs Date Time Temp Pulse Resp B/P (MAP) Pulse Ox O2 Delivery O2 Flow Rate FiO2 10/08/25 16:13 65 18 Room Air 0.0 10/08/25 16:01 96 21 10/08/25 15:00 97.6 153/57 (89) Result Diagram: 10/08/25 0320 10/08/25 0320 General: Awake and Alert, no acute distress. HEENT: Conjunctiva pale, Sclera clear, Mucus Membranes dry Neck: Supple without masses and tenderness. Resp: Basilar crackle Heart: irregular rate and rhythm, normal S1 and S2 Abdomen: Soft and non tender Extremities: No cyanosis,clubbing or edema. Skin: Warm and Dry. Neurological: Speech is clear, alert, and oriented x 4, no gross neurological deficits Coagulation Studies Laboratory Tests Test 10/06/25 11:08 10/08/25 10:11 Prothrombin Time 10.9 SECONDS (9.0-12.0) INR International Normalized Ratio 1.1 INR Activated Partial Thromboplast Time 29 SECONDS (22-32) Coagulation Comments D-Dimer 1.07 MG/L FEU (0-0.50) H D-Dimer Comment Plan Plan Assessment: 65 years old male very poor historian with history of polysubstance abuse, alcohol use disorder presented with cough fever will be currently being treated for acute hypoxemic respiratory failure secondary to acute exacerbation CHF, COPD a new onset AFib. Acute hypoxemic respiratory failure likely secondary to below Possible acute CHF, new onset Possible acute exacerbation of undetected COPD Left lower zone pneumonia, covering Gram-positive and Gram-negative and anaerobes On admission: Leukocytosis continued to worsen with neutrophilic predominance, most likely due to infection or marginalization due to steroids. Awaiting inflammatory markers with Procalcitonin is 0.53 and C-reactive protein is 7.49 and ESR is 34 Electrolytes are normal,.Troponins are negative, ProBNP is 8386 Chest x-ray showed left lower zone pneumonia along with COPD changes Outpatient evaluation with PFT Echocardiogram shows a hyperdynamic left ventricle with an ejection fraction of 70% elevated RVSP of 47, most likely due to cor pulmonale. Stopped Lasix, patient looks dehydrated. Strict input and output monitoring Continue ceftriaxone Zithromax , day 3 Continue albuterol q.4h p.r.n. , DuoNeb q.4h scheduled, methylprednisolone 40 mg IV b.i.d. Incentive spirometer with flutter valve q.1h while awake Started the patient on GDM T with Jardiance 10. Newly diagnosed AFib with RVR Patient had elevated heart rate around 150 yesterday. Received loading doses of amiodarone, transition to p.o. amiodarone 200 b.i.d. and diltiazem 120 daily as per cardiology recommendation Continue Eliquis 2.5 mg b.i.d. in view of his JOLENE and age. JOLENE likely secondary to prerenal, vasomotor nephropathy Creatinine improved to 2.89, BUN 97 Renal Ultrasound, normal FENa less than 1 suggestive of prerenal Patient is on IV fluids normal saline 50 mL/hour and we will re-evaluate his volume status for tomorrow. Polysubstance use Methamphetamine use disorder, fentanyl use disorder Alcohol use disorder Nicotine use disorder Ordered social and substance use consult , Withdrawal protocol with lorazepam 2 mg q.2h p.r.n. Strongly recommended to quit drugs. Code status: Full code DVT prophylaxis: Eliquis 2.5 Analgesia/sedation: Morphine/[place] Line/tube: PIV GI prophylaxis: None Nutrition: Heart healthy PT: Ordered. Prognosis: Guarded Disposition: Continue medical management. This patient has been seen and discussed with my senior resident PGY 2 PGY 3 on my attending physician. Baldemar Field MD PGY1, Internal Medicine [facility] Date of Service: Oct 08, 2025 Billing Provider: PENNY LUNDBERG MD,BALDEMAR, RES Oct 08, 2025 18:38
[2025-10-09] VITALS (17 sets, daily range): BP systolic 145–187; BP diastolic 58–71; PULSE 69–88; RESP 15–32; TEMP 96.9–98.1; O2SAT 94–98
[2025-10-09] MEDS: mag hydrox/Alum hydrox/simeth 30ml oral suspension PO PRN (01:48)
[2025-10-09] MEDS: HYDROcodone/acetaminophen 10/325mg tab PO PRN ×2 (03:30→11:44)
[2025-10-09 04:08] LABS: MEAN PLATELET VOLUME 8.3 FL (7.4-10.4); RED CELL DISTRIBUTION WIDTH 16.3 % (11.5-14.5)
[2025-10-09 04:17] LABS: CREATININE 2.01 MG/DL (0.60-1.10); PHOSPHORUS 2.6 MG/DL (2.3-4.5); TOTAL CARBON DIOXIDE 27.5 MMOL/L (24-32); eCRCL 26 ML/MIN; eGFR 33 ML/MIN
[2025-10-09] MEDS: vancomycin/NS 1 GM ADD-VANTAGE 250 ML IV PRN (05:01)
[2025-10-09] MEDS: EMPAGLIFLOZIN 10 MG TABLET PO SCH (07:31)
[2025-10-09] MEDS ORDERED: vancomycin/NS 1 GM ADD-VANTAGE 250 ML IV SCH (09:16)
[2025-10-09] MEDS ORDERED: buprenorphine/naloxone 8mg/2mg SL tablet SL PRN (11:20)
--- NOTE | 2025-10-09 18:33 | PROGRESS NOTE- Residence ---
Progress Note - Resident Providers to CC Resident Creating Document: BALDEMAR FIELD RES ~ Central Line/PICC still needed: N\A Fernandez-Non Protocol Fernandez Indications Met/Not Met: F/C Indications Met Antibiotic Timeout Antibiotic Ordered?: Yes Subjective Patient seen and examined at the bedside, complains of pain all over his body. Complains of pain in his head, chest, abdomen. This is a med same since the day of admission. Requesting Suboxone constantly. Eating well, tolerating diet. Objective Vital Signs Date Time Temp Pulse Resp B/P (MAP) Pulse Ox O2 Delivery O2 Flow Rate FiO2 10/09/25 15:00 97.6 69 20 155/58 (90) 95 Room Air 10/09/25 14:58 0.0 10/09/25 14:52 21 Result Diagram: 10/09/25 0350 10/09/25 0350 General: Awake and Alert, no acute distress. HEENT: Conjunctiva pale, Sclera clear, Mucus Membranes dry Neck: Supple without masses and tenderness. Resp: Basilar crackle Heart: irregular rate and rhythm, normal S1 and S2 Abdomen: Soft and non tender Extremities: No cyanosis,clubbing or edema. Skin: Warm and Dry. Neurological: Speech is clear, alert, and oriented x 4, no gross neurological deficits Coagulation Studies Laboratory Tests Test 10/06/25 11:08 10/08/25 10:11 Prothrombin Time 10.9 SECONDS (9.0-12.0) INR International Normalized Ratio 1.1 INR Activated Partial Thromboplast Time 29 SECONDS (22-32) Coagulation Comments D-Dimer 1.07 MG/L FEU (0-0.50) H D-Dimer Comment Plan Plan Assessment: 65 years old male very poor historian with history of polysubstance abuse, alcohol use disorder presented with cough fever will be currently being treated for acute hypoxemic respiratory failure secondary to acute exacerbation CHF, COPD a new onset AFib. Acute hypoxemic respiratory failure likely secondary to below Possible acute CHF, new onset Possible acute exacerbation of undetected COPD Left lower zone pneumonia, covering Gram-positive and Gram-negative and anaerobes Sepsis present on admission Leukocytosis improved to 15.6 today. Elevated inflammatory markers with Procalcitonin is 0.53 and C-reactive protein is 7.49 and ESR is 34 Electrolytes are normal,.Troponins are negative, ProBNP is 8386 Chest x-ray showed left lower zone pneumonia along with COPD changes Outpatient evaluation with PFT Echocardiogram shows a hyperdynamic left ventricle with an ejection fraction of 70% elevated RVSP of 47, most likely due to cor pulmonale. Stopped Lasix, patient looks dehydrated. Strict input and output monitoring Completed azithromycin course, stop vancomycin. Continue ceftriaxone for tomorrow. Continue albuterol q.4h p.r.n. , DuoNeb q.4h scheduled, reduced methylprednisolone to 40 mg IV daily Incentive spirometer with flutter valve q.1h while awake Started the patient on GDM T with Jardiance 10. Started aspirin and statin a secondary prevention, as per is ASCVD risk score. Newly diagnosed AFib with RVR Patient going back and forth in AFib, controlled heart rate. Continue amiodarone 200 mg daily and diltiazem 120 mg daily as per cardiology recommendation Continue Eliquis 2.5 mg b.i.d. in view of his JOLENE and age. Hypertension Patient has not elevated hypertension of systolic blood pressure in 150s and 160s. Most likely since he is withdrawing from fentanyl and methamphetamine. Added hydralazine 10 mg IV p.r.n. in case the blood pressure goes beyond 160. We will continue monitor vitals and check if this is a new onset hypotension. Echocardiogram shows moderate concentric left ventricular hypertrophy. JOLENE likely secondary to prerenal, vasomotor nephropathy Creatinine improved to 2.89, BUN 97 Renal Ultrasound, normal FENa less than 1 suggestive of prerenal Patient is on IV fluids normal saline 50 mL/hour and we will re-evaluate his volume status for tomorrow. Polysubstance use Methamphetamine use disorder, fentanyl use disorder Alcohol use disorder Nicotine use disorder History of homelessness Ordered social and substance use consult , Withdrawal protocol with lorazepam 2 mg q.2h p.r.n. Strongly recommended to quit drugs. Code status: Full code DVT prophylaxis: Eliquis 2.5 Analgesia/sedation: Morphine/[place] Line/tube: PIV GI prophylaxis: None Nutrition: Heart healthy PT: Recommend post-acute care Prognosis: Guarded Disposition: Continue medical management. This patient has been seen and discussed with my senior resident PGY 2 PGY 3 on my attending physician. Baldemar Field MD PGY1, Internal Medicine [facility] Date of Service: Oct 09, 2025 Billing Provider: PENNY LUNDBERG MD, SHIVANI, RES Oct 09, 2025 18:33
[2025-10-09] MEDS: nicotine 14mg patch - 24hr TD ONE (23:23)
[2025-10-10] VITALS (15 sets, daily range): BP systolic 111–170; BP diastolic 68–76; PULSE 63–80; RESP 14–24; TEMP 97.3–99.5; O2SAT 96–99
[2025-10-10 04:41] LABS: MEAN PLATELET VOLUME 8.3 FL (7.4-10.4); RED CELL DISTRIBUTION WIDTH 16.2 % (11.5-14.5)
[2025-10-10 04:59] LABS: CREATININE 1.69 MG/DL (0.60-1.10); TOTAL CARBON DIOXIDE 26.9 MMOL/L (24-32); eCRCL 31 ML/MIN; eGFR 41 ML/MIN
[2025-10-10 06:35] LABS: BANDS% (MANUAL) 2.0 % (0-10); LYMPHOCYTES % (MANUAL) 7.0 % (21-51); METAMYLEOCYTES% (MANUAL) 1.0 % (0-0); MONOCYTES % (MANUAL) 14.0 % (2-12); NEUTROPHILS % (MANUAL) 76.0 % (42-75)
[2025-10-10 06:36] LABS: PLATELET ESTIMATE NORMAL
[2025-10-10] MEDS: methylPREDNISolone sod succ/PF 40mg inj. IV SCH (08:06)
[2025-10-10] MEDS: aspirin 81mg, enteric-coated 1 TAB TABLET.DR PO SCH (08:08)
--- NOTE | 2025-10-10 09:24 | RADIOLOGY REPORT ---
CLINICAL HISTORY: Abdominal pain TECHNIQUE: Transabdominal sonogram was performed of the right upper quadrant. COMPARISON: None FINDINGS: The liver is increased in echogenicity. There is no focal parenchymal abnormality. No intrahepatic biliary ductal dilatation is present. The liver measures 16.7 cm. The gallbladder contains stones with mild 4 mm wall thickening. The sonographic navarrete's sign was reported to be absent. There is gallbladder sludge. The common bile duct is normal in caliber, measuring 3 mm. The pancreas is not well seen. There is trace perihepatic ascites. The right kidney is normal in echogenicity and measures 8.8 cm in length. There is no evidence for hydronephrosis or calculi. IMPRESSION: Diffuse hepatic steatosis. Trace perihepatic ascites. Cholelithiasis with mild gallbladder wall thickening.
--- NOTE | 2025-10-10 17:01 | PROGRESS NOTE- Residence ---
Progress Note - Resident Providers to CC Resident Creating Document: BALDEMAR FIELD RES ~ Central Line/PICC still needed: N\A Fernandez-Non Protocol Fernandez Indications Met/Not Met: F/C Indications Not Met Antibiotic Timeout Antibiotic Ordered?: Yes Subjective Patient seen and examined at the bedside. He was NPO overnight for ultrasound today morning. Patient seemed very agitated in the morning, wanted to leave AMA since he was hungry. He agreed to stay after he received an extra tray of breakfast. He is still complaining of headache. Objective Vital Signs Date Time Temp Pulse Resp B/P (MAP) Pulse Ox O2 Delivery O2 Flow Rate FiO2 10/10/25 16:19 63 17 Room Air 0.0 10/10/25 16:14 96 21 10/10/25 15:00 97.3 135/68 (90) Result Diagram: 10/10/2542110/10/25421 General: Awake and Alert, no acute distress. HEENT: Conjunctiva pale, Sclera clear, Mucus Membranes dry Neck: Supple without masses and tenderness. Resp: Basilar crackle Heart: irregular rate and rhythm, normal S1 and S2 Abdomen: Soft and non tender Extremities: No cyanosis,clubbing or edema. Skin: Warm and Dry. Neurological: Speech is clear, alert, and oriented x 4, no gross neurological deficits Coagulation Studies Laboratory Tests Test 10/06/25 11:08 10/08/25 10:11 Prothrombin Time 10.9 SECONDS (9.0-12.0) INR International Normalized Ratio 1.1 INR Activated Partial Thromboplast Time 29 SECONDS (22-32) Coagulation Comments D-Dimer 1.07 MG/L FEU (0-0.50) H D-Dimer Comment Counseling Services Smoking & Tobacco Cessation: N/A Advance Care Planning Advanced Care planning: N/A Plan Plan Assessment: 65 years old male very poor historian with history of polysubstance abuse, alcohol use disorder currently being treated for acute hypoxic respiratory failure secondary to left lower zone room pneumonia, CHF and COPD. New onset atrial fibrillation. Currently on p.o. antibiotics and other medications. PT recommended post-acute care. Awaiting placement. Acute hypoxemic respiratory failure likely secondary to below Possible acute CHF, new onset Possible acute exacerbation of undetected COPD Left lower zone pneumonia, covering Gram-positive and Gram-negative and anaerobes Sepsis present on admission Leukocytosis improved to 15.6 today. Inflammatory markers normalized . Electrolytes are normal,.Troponins are negative, ProBNP is 8386 Chest x-ray showed left lower zone pneumonia along with COPD changes Outpatient evaluation with PFT for COPD Echocardiogram shows a hyperdynamic left ventricle with an ejection fraction of 70% elevated RVSP of 47, most likely due to cor pulmonale. Stopped Lasix, patient looks dehydrated. Strict input and output monitoring Completed azithromycin course, stop vancomycin. Continue ceftriaxone for tomorrow. Continue albuterol q.4h p.r.n. , DuoNeb q.4h scheduled, reduced methylprednisolone to 40 mg IV daily Incentive spirometer with flutter valve q.1h while awake Started the patient on GDM T with Jardiance 10. Started aspirin and statin a secondary prevention, as per is ASCVD risk score. Newly diagnosed AFib with RVR Patient going back and forth in AFib, controlled heart rate. Continue amiodarone 200 mg daily and diltiazem 120 mg daily as per cardiology recommendation Continue Eliquis 2.5 mg b.i.d. in view of his JOLENE and age. Hypertension Patient has not elevated hypertension of systolic blood pressure in 150s and 160s. Most likely since he is withdrawing from fentanyl and methamphetamine. Blood pressure 135/68 today. Echocardiogram shows moderate concentric left ventricular hypertrophy. JOLENE likely secondary to prerenal, vasomotor nephropathy Creatinine improved to 1.69, BUN 67 Renal Ultrasound, normal FENa less than 1 suggestive of prerenal Stop IV fluids in view of his improving kidney functions, and infection. Polysubstance use Methamphetamine use disorder, fentanyl use disorder Alcohol use disorder Nicotine use disorder History of homelessness Ordered social and substance use consult , Withdrawal protocol with lorazepam 2 mg q.2h p.r.n. Strongly recommended to quit drugs. Code status: Full code DVT prophylaxis: Eliquis 2.5 Analgesia/sedation: Morphine/De [place] Line/tube: PIV GI prophylaxis: None Nutrition: Heart healthy PT: Recommend post-acute care Prognosis: Guarded Disposition: Continue medical management. Awaiting placement. This patient has been seen and discussed with my senior resident PGY 2 PGY 3 on my attending physician. Baldemar Field MD PGY1, Internal Medicine [facility] Date of Service: Oct 10, 2025 Billing Provider: PENNY LUNDBERG MD, SHIVANI, RES Oct 10, 2025 17:01
[2025-10-11] VITALS (7 sets, daily range): BP systolic 148–158; BP diastolic 57–77; PULSE 65–81; RESP 16–21; TEMP 97.8–98.2; O2SAT 96–98
[2025-10-11 06:34] LABS: MEAN PLATELET VOLUME 8.2 FL (7.4-10.4); RED CELL DISTRIBUTION WIDTH 16.0 % (11.5-14.5)
[2025-10-11 06:44] LABS: CREATININE 1.97 MG/DL (0.60-1.10); TOTAL CARBON DIOXIDE 29.0 MMOL/L (24-32); eCRCL 27 ML/MIN; eGFR 34 ML/MIN
--- NOTE | 2025-10-11 17:00 | DISCHARGE SUMMARY-Residence ---
Discharge Summary Providers to CC Resident Creating Document: MILTONLESLEYJANNETHBALDEMAR, RES ~ Discharge Summary Admission Diagnosis: ACUTE CHF, BACTERIAL PNEUMONIA, JOLENE, METHAMPHETAMINE USE Hospital Course DATE OF ADMISSION: 10/06/2025 DATE OF DISCHARGE: 10/11/2025 Discharge Diagnosis\Comment: Acute hypoxemic respiratory failure secondary to Acute exacerbation CHF with preserved ejection fraction Possible undetected COPD Left lower zone pneumonia, Gram-positive g negative infection New diagnosis AFib with RVR Hypotension Prerenal JOLENE, last melena subcu Polysubstance use disorder Methamphetamine use disorder Fentanyl use disorder Alcohol use disorder Nicotine disorder History of homelessness Operations\Procedures: None Consultants: Cardiology, Dr. Uzair Gordon Complications: None Condition on DC: Stable New Medications: Albuterol Sulfate (Ventolin Hfa) 90 Mcg Hfa.aer.ad 2 PUFFS IH 5XD, #1 INHALER Empagliflozin (Jardiance) 10 Mg Tablet 1 TAB PO DAILY for 30 Days, #30 TAB 0 Refills Linezolid (Linezolid) 600 Mg Tablet 1 TAB PO Q12H for 4 Days, #8 TAB 0 Refills Prednisone (Prednisone) 10 Mg Tablet 0 PO DAILY, #26 TAB Take 3 tabs daily x4 days, then 2 daily x4 days 1 daily x4 days 1/2 daily x4 days then STOP Discharge Summary: History of present illness: 65-year-old male(very poor historian) came to the ER with chief complaints of cough and fever for the past 1 week, progressively worsening, associated with white and yellow-colored sputum without any obvious trigger. He reported fever, high-grade, intermittent not associated with chills and rigors for the past 5 days. shortness of breath for the past 2 weeks, class 4 NYHA associated with orthopnea and PND. He reported chest pain for the past 1 week more on the left side, squeezing type, rated 10/10 without any aggravating or relieving factors and without any radiation to neck and left upper limb. He reported myalgias and generalized weakness. he denied swelling of the legs, palpitations, nausea, vomiting, diarrhea, dysuria, hematuria. Hospital course: Sepsis was present on admission, the patient was started on vancomycin, ceftriaxone and azithromycin for his history of IV drug use and community-acquired pneumonia. Chest x-ray showed left lower zone pneumonia along with COPD changes. He completed his course of antibiotics and was shifted to oral linezolid for discharge. He was also diagnosed with seizure for preserved ejection fraction, he was started on GDM T with Jardiance 10. Echocardiogram demonstrated hyperdynamic left ventricle with an ejection fraction of 70%. He was initially treated with fluids for sepsis, and later treated with IV fluids for his heart failure. Cartilage was consulted in view of his new diagnosis of AFib with RVR. After loading dose of amiodarone has been discharged with amiodarone 200 daily and diltiazem 120 daily. He had elevated blood pressures during his hospital stay most likely withdrawing from fentanyl and methamphetamine. He had Ativan p.r.n. for agitation, tremors and anxiety. He had an elevated creatinine on discharge, which improved significantly after fluids and Lasix. He complained of abdominal pain during the course of his hospitalization, nonspecific. Ultrasound revealed no abnormalities. Substance use navigator was consulted in view of his polysubstance use disorder. He has been strongly advised to quit smoking, explained the adverse effects of his deleterious habits. He is symptomatically better and hemodynamically stable and hence being discharged with the following instructions. Vital Signs Date Time Temp Pulse Resp B/P (MAP) Pulse Ox O2 Delivery O2 Flow Rate FiO2 10/11/25 15:21 74 18 Room Air 0.0 10/11/25 15:16 98 21 10/11/25 11:00 98.2 158/77 (104) Laboratory Tests Test 10/10/25 04:22 10/11/25 06:12 10/11/25 08:04 White Blood Count 12.7 X10'3 15.1 X10'3 Red Blood Count 4.02 X10'6 4.23 X10'6 Hemoglobin 10.7 g/dl 11.1 g/dl Hematocrit 32.9 % 34.3 % Mean Corpuscular Volume 81.8 FL 81.2 FL Mean Corpuscular Hemoglobin 26.6 PG 26.3 PG Mean Corpuscular Hemoglobin Concent 32.5 g/dL 32.4 g/dL Red Cell Distribution Width 16.2 % 16.0 % Platelet Count 292 X10'3 290 X10'3 Mean Platelet Volume 8.3 FL 8.2 FL Neutrophils (%) (Auto) 78.1 % 78.0 % Lymphocytes (%) (Auto) 7.7 % 10.1 % Monocytes (%) (Auto) 13.9 % 11.8 % Eosinophils (%) (Auto) 0 % 0 % Basophils (%) (Auto) 0.3 % 0.1 % Neutrophils # (Auto) 9.9 X10'3 11.7 X10'3 Lymphocytes # (Auto) 1.0 X10'3 1.5 X10'3 Monocytes # (Auto) 1.8 X10'3 1.8 X10'3 Eosinophils # (Auto) 0.0 X10'3 0.0 X10'3 Basophils # (Auto) 0.0 X10'3 0.0 X10'3 CBC Comment Differential Total Cells Counted 100 Neutrophils % (Manual) 76.0 % Band Neutrophils % 2.0 % Lymphocytes % (Manual) 7.0 % Monocytes % (Manual) 14.0 % Metamyelocytes % 1.0 % Platelet Estimate Normal Red Blood Cell Morphology Perf Basophilic Stippling Anisocytosis 1+ Sodium Level 139 MMOL/L 139 MMOL/L Potassium Level 4.4 MMOL/L 4.9 MMOL/L Chloride Level 108 MMOL/L 106 MMOL/L Carbon Dioxide Level 26.9 MMOL/L 29.0 MMOL/L Anion Gap 4 4 Blood Urea Nitrogen 67 MG/DL 70 MG/DL Creatinine 1.69 MG/DL 1.97 MG/DL Estimated GFR/1.73 m2 41 ML/MIN 34 ML/MIN BUN/Creatinine Ratio 39.6 35.5 Glucose Level 104 MG/DL 112 MG/DL Calcium Level 8.4 MG/DL 8.4 MG/DL Total Bilirubin 0.3 MG/DL 0.2 MG/DL Aspartate Amino Transf (AST/SGOT) 23 U/L 25 U/L Alanine Aminotransferase (ALT/SGPT) 28 U/L 34 U/L Alkaline Phosphatase 51 IU/L 67 IU/L Total Protein 5.9 G/DL 5.8 G/DL Albumin 2.4 G/DL 2.5 G/DL Globulin 3.5 G/DL 3.3 G/DL Albumin/Globulin Ratio 0.7 0.8 Chemistry Comments Procalcitonin < 0.05 NG/ML Imaging: Chest x-ray: Streaky opacity at the left lung base which could represent a developing bronchopneumonia. Echocardiogram: Overall LVEF is 70-75%. Normal LV size with hyperdynamic function. Peak LV gradient of 28 mmHg at rest. Patient unable to perform Valsalva maneuver. Moderate concentric hypertrophy. RV is normal size and function. Elevated right heart pressures as noted above. Mild MV annular calcification without stenosis. Trace regurgitation by color and spectral flow Doppler. TV appears structurally normal with trace regurgitation by color and spectral flow Doppler. Estimated PA systolic pressure of 47 mm of mercury Pulmonic valve is not well visualized. Normal pericardium. No effusion. Renal ultrasound: No hydronephrosis. V/Q scan: Low probability for PE. Abdominal ultrasound: Diffuse hepatic steatosis. Trace perihepatic ascites. Cholelithiasis with mild gallbladder wall thickening. Physical exam on discharge: General: Awake and Alert, no acute distress. HEENT: Conjunctiva pale, Sclera clear, Mucus Membranes dry Neck: Supple without masses and tenderness. Resp: Basilar crackle Heart: irregular rate and rhythm, normal S1 and S2 Abdomen: Soft and non tender Extremities: No cyanosis,clubbing or edema. Skin: Warm and Dry. Neurological: Speech is clear, alert, and oriented x 4, no gross neurological deficits Discharge medications: Linezolid 600 p.o. b.i.d. Amiodarone 200 mg daily Apixaban 2.5 mg p.o. b.i.d. Aspirin 81 mg daily Atorvastatin 40 mg daily Diltiazem 120 mg daily Jardiance 10 mg daily Tapering dose of steroids Ventolin inhaler Discharge instructions: Take all medications regularly Follow up with your primary care provider in 1-2 weeks Outpatient pulmonary referral with PFT Strongly advised to stay away from drugs. Visit ER in case of any acute emergencies. *Problems/Diagnosis: (1) Tobacco abuse Status: Acute (2) Homelessness Status: Acute (3) Methamphetamine abuse Status: Acute (4) New onset of congestive heart failure Status: Acute (5) Community acquired pneumonia Status: Acute Total Time Spent on D/C: Up to 30 Minutes Counseling Services Smoking & Tobacco Cessation: N/A Date of Service: Oct 11, 2025 Billing Provider: PENNY LUNDBERG MD, SHIVANI, RES Oct 11, 2025 16:59
[2025-10-15] MEDS ORDERED: VANCOMYCIN LEVEL IV ONE (08:30)
== END 2025-10-11 15:29 | DRG 871 ==
LOC: ER 22:37 → ED HOLD 10-06 03:10 → PCU 3S 10-06 21:16
PROVIDERS: ADMIT Internal Medicine; ATTEND Family Medicine
PROC: CB121ZZ Planar Nuclear Medicine Imaging of Lungs and Bronchi using Technetium 99m (Tc-99m) (ICD-10-PCS; principal; 2025-10-08)
PROC: 05HC33Z Insertion of Infusion Device into Left Basilic Vein, Percutaneous Approach (ICD-10-PCS; 2025-10-09)
PROC: B54NZZA Ultrasonography of Left Upper Extremity Veins, Guidance (ICD-10-PCS; 2025-10-09)
DX: A41.9 Sepsis, unspecified organism (principal); I50.33 Acute on chronic diastolic (congestive) heart failure; J96.01 Acute respiratory failure with hypoxia; N17.0 Acute kidney failure with tubular necrosis; J15.69 Pneumonia due to other Gram-negative bacteria; J15.9 Unspecified bacterial pneumonia; J44.0 Chronic obstructive pulmonary disease with (acute) lower respiratory infection; F19.10 Other psychoactive substance abuse, uncomplicated; Z59.00 Homelessness unspecified; Z20.822 Contact with and (suspected) exposure to COVID-19; I48.91 Unspecified atrial fibrillation; F15.10 Other stimulant abuse, uncomplicated; Z88.5 Allergy status to narcotic agent; Z79.899 Other long term (current) drug therapy; Z72.0 Tobacco use
CPT/HCPCS: 36410; 36415; 71046; 76700; 76770; 76937; 78582; 80048; 80053; 80061; 80202; 80305; 80320; 81001; 82570; 82948; 83036; 83605; 83880; 83935; 84100; 84133; 84145; 84156; 84300; 84443; 84484; 85007; 85025; 85379; 85610; 85651; 85730; 86140; 87040; 87081; 87207; 87804; 87811; 93005; 93306; 94640; 94664; 94668; 94760; 96365; 97116; 97161; 97530; 99285; A6258; A6590; A9539; A9540; C1751; G0378; J0282; J0360; J0456; J0696; J1644; J1938; J2060; J2270; J2919; J3373; J3411; J3490; J7030; J7040